=== PATIENT | male | born 1990 | race African-American/Black ===

== ENCOUNTER 2024-07-26 12:36 | Outpatient (CLI) | payer OTHER, SELFPAY ==
--- NOTE | ~2024-07-26 | MR_ITS ---
MRI of the right knee Clinical history: Sprain Technique: Coronal proton density and proton density-weighted images, sagittal proton-density and T2 fat-sat images, and axial proton-density fat-saturated images were acquired. Findings: ACL is very poorly defined, with suspected complete tear at its mid to distal portion. Post erior cruciate ligament is intact. Medial collateral ligament and the lateral collateral ligament com plex are intact. Popliteus tendon is intact. There is a radial tear of the posterior root of the medial meniscus. There is probable tear of the po sterior horn of the lateral meniscus, with complex morphology and possible small displaced fragment t owards the intercondylar notch. There is grade 4 chondral fissure at the patellar apex. There is moderate chondromalacia the inferior femoral trochlea centrally. There is amorphous marrow edema of the lateral tibial plateau and latera l femoral condyle, which could reflect recent pivot shift injury. Additional mild contusion at the po sterior medial tibial plateau. Extensor mechanism is intact. Large joint effusion present. No Kennedy's cyst.. Impression: Probable complete, acute ACL tear at its midportion to distal aspect. Probable amorphous bone contusions, as detailed above, compatible with recent pivot shift injury. Radial tear at the posterior the medial meniscus. Probable complex at the posterior horn of the lateral meniscus with possible small displaced fragment towards the intercondylar notch. Large joint effusion. Chondromalacia of the patellofemoral compartment, as detailed above. Reviewed, dictated and finalized at [facility]. [employer] Impression: Probable complete, acute ACL tear at its midportion to distal aspect. Probable amorphous bone contusions, as detailed above, compatible with recent p ivot shift injury. Radial tear at the posterior the medial meniscus. Probable complex at the posterior horn of the lateral meniscus with possible sm all displaced fragment towards the intercondylar notch. Large joint effusion. Chondromalacia of the patellofemoral compartment, as detailed above.
== END 2024-07-26 12:37 | disposition home or self-care (01) ==
LOC: ANHIMG 12:41
PROVIDERS: Visit Provider Physician Assistant
DX: K21.9 Gastro-esophageal reflux disease without esophagitis (principal); Z11.59 Encounter for screening for other viral diseases; K02.52 Dental caries on pit and fissure surface penetrating into dentin; E66.9 Obesity, unspecified; K08.89 Other specified disorders of teeth and supporting structures
CPT/HCPCS: 73721